=== PATIENT | female | born 1965 | race Caucasian/White ===

== ENCOUNTER 2018-09-07 08:13 | Day surgery (SDC) | payer OTHER ==
[2018-09-07] MEDS ORDERED: HEPARIN 1000 UNITS/ML 10 ML INJ (10:59)
[2018-09-07] MEDS ORDERED: MIDAZOLAM 1 MG/ML 2 ML INJ (10:59)
[2018-09-07] MEDS ORDERED: LIDOCAINE 1% (MDV) 20 ML INJ (10:59)
[2018-09-07] MEDS ORDERED: IODIXANOL LOCM 100 ML BTL (10:59)
[2018-09-07] MEDS ORDERED: FENTAnyl 50 MCG/ML VIAL (10:59)
[2018-09-07] MEDS ORDERED: NITROGLYCERIN (IC) 100 MCG/ML INJ (10:59)
[2018-09-07] MEDS ORDERED: SOD CHLORIDE 0.9% 500 ML (10:59)
[2018-09-07] MEDS ORDERED: VERAPAMIL 5 MG INJ (11:00)
[2018-09-07] MEDS ORDERED: SOD CHLORIDE 0.9% 1,000 ML IV (11:51)
[2018-09-07] MEDS ORDERED: ONDANSETRON 4 MG INJ IV (12:00)
[2018-09-07] MEDS ORDERED: AL HYDROX/MG HYDROX/SIMETH 30 ML CUP PO (12:00)
[2018-09-07] MEDS ORDERED: ACETAMINOPHEN 325 MG TAB PO (12:00)
== END 2018-09-07 16:48 | disposition home or self-care (01) ==
LOC: SDS 08:13
DX: I25.10 Atherosclerotic heart disease of native coronary artery without angina pectoris (principal); I10 Essential (primary) hypertension; E78.5 Hyperlipidemia, unspecified; R73.03 Prediabetes
CPT/HCPCS: 93005; 93458